=== PATIENT | male | born 1955 | race Caucasian/White ===

== ENCOUNTER 2024-05-28 18:06 | Emergency (ER) | payer MEDICARE, BC ==
[~2024-05-28] VITALS: Ht 185.4 cm; Wt 107.5 kg
[2024-05-28 18:36] LABS: BASOPHILS ABSOLUTE AUTO 0.05 K/mm3 (0.00-0.23); BASOPHILS PERCENT AUTO 1 % (0-2); EOSINOPHILS ABSOLUTE AUTO 0.15 K/mm3 (0.00-0.68); EOSINOPHILS PERCENT AUTO 2 % (0-6); Hematocrit 33.6 % (37.0-53.0); Hemoglobin 11.9 g/dL (13.5-17.5); IMMATURE GRAN ABSOLUTE AUTO 0.04 K/mm3 (0.00-0.10); IMMATURE GRAN PERCENT AUTO 1 % (0-1); LYMPHOCYTES ABSOLUTE AUTO 1.75 K/mm3 (0.84-5.20); LYMPHOCYTES PERCENT AUTO 23 % (21-46); MONOCYTES ABSOLUTE AUTO 0.81 K/mm3 (0.16-1.47); MONOCYTES PERCENT AUTO 11 % (4-13); Mean Corpuscular HGB 34.7 pg (26.0-34.0); Mean Corpuscular HGB Conc 35.4 g/dL (31.5-36.5); Mean Corpuscular Volume 98 fL (80-100); Mean Platelet Volume 8.5 fL (9.1-12.4); NEUTROPHILS PERCENT AUTO 64 % (41-73); Platelet Count 157 K/mm3 (150-400); RDW Coefficient Variation 12.8 % (11.7-14.2); RDW Standard Deviation 46.4 fL (35.1-46.3); Red Blood Cell Count 3.43 M/mm3 (4.30-5.90)
[2024-05-28 19:41] LABS: Albumin, Blood 3.6 g/dL (3.4-5.0); Albumin/Globulin Ratio 0.7 (0.8-1.8); Bilirubin, Total 0.5 mg/dL (0.1-1.0); Calcium, Blood 8.7 mg/dL (8.5-10.1); Creatinine, Blood 0.75 mg/dL (0.60-1.20); Globulin, Blood 5.1 g/dL (2.2-4.0); Potassium, Blood 4.5 mmol/L (3.5-5.5); Total Protein, Blood 8.7 g/dL (6.4-8.2)
[2024-05-28] MEDS ORDERED: LOSA50 PO (20:35)
[2024-05-28] MEDS ORDERED: BUSPIRONE HCL10 M6 PO (20:35)
[2024-05-28] MEDS ORDERED: LATA.005SO BOTHEYES (20:35)
[2024-05-28] MEDS ORDERED: TESTOSTERONE75 G1 TD (20:35)
[2024-05-28] MEDS ORDERED: OMEP20ER PO (20:36)
[2024-05-28] MEDS ORDERED: Tessalon200 MG PO (20:37)
[2024-05-28] MEDS ORDERED: AMITRIPTYLINE H25 MG PO (20:37)
[2024-05-28 21:15] VITALS: BP 161/87
== END 2024-05-28 21:31 | disposition home or self-care (01) ==
LOC: ER 18:06
PROVIDERS: Student in an Organized Health Care Education/Training Program
DX: R07.9 Chest pain, unspecified (principal); R55 Syncope and collapse; J32.9 Chronic sinusitis, unspecified; Z87.891 Personal history of nicotine dependence; D61.818 Other pancytopenia; D51.1 Vitamin B12 deficiency anemia due to selective vitamin B12 malabsorption with proteinuria; D52.0 Dietary folate deficiency anemia; E55.9 Vitamin D deficiency, unspecified; B18.8 Other chronic viral hepatitis; R94.6 Abnormal results of thyroid function studies
CPT/HCPCS: 36415; 70450; 71046; 80053; 80074; 82306; 82607; 82668; 82746; 82784; 82977; 83521; 83615; 83690; 84155; 84165; 84443; 84484; 85025; 85060; 86039; 86334; 86707; 87340; 87350; 88184; 88185; 93005; 93010; 99285-25

== ENCOUNTER 2024-07-26 13:34 | Emergency (ER) | payer MEDICARE, BC ==
[~2024-07-26] VITALS: Ht 185.4 cm; Wt 108.9 kg
[~2024-07-26 13:34] MED LIST: AMITRIPTYLINE H25 MG PO; BUSPIRONE HCL10 M6 PO; LATA.005SO BOTHEYES; LOSA50 PO; OMEP20ER PO; TESTOSTERONE75 G1 TD; Tessalon200 MG PO
[2024-07-26] MEDS ORDERED: HYDROCODONE-AC1 EA19 (16:33)
[2024-07-26] MEDS ORDERED: OMEP20ER (16:33)
[2024-07-26] MEDS ORDERED: Lidocaine 4% 1 Patch TOP ONE (16:40)
[2024-07-26] MEDS ORDERED: HYDROmorphone HCl/Pf 1MG SYR IM ONE (16:40)
[2024-07-26] MEDS ORDERED: Sennosides 8.6 MG Tab PO ONE (16:40)
[2024-07-26] MEDS ORDERED: Methocarbamol 500 MG Tab PO ONE (16:40)
[2024-07-26] MEDS ORDERED: RX Prepack 6 Tabs Oxycodone 5mg UD ONE (18:35)
[2024-07-26] MEDS ORDERED: Robaxin750 MG PO (18:37)
[2024-07-26] MEDS ORDERED: Roxicodone5 MG PO (18:37)
[2024-07-26 18:45] VITALS: BP 167/92
== END 2024-07-26 18:48 | disposition home or self-care (01) ==
LOC: ER 13:34
DX: S22.41XA Multiple fractures of ribs, right side, initial encounter for closed fracture (principal); J90 Pleural effusion, not elsewhere classified; J98.11 Atelectasis; V18.0XXA Pedal cycle driver injured in noncollision transport accident in nontraffic accident, initial encounter; Z79.899 Other long term (current) drug therapy; Z87.891 Personal history of nicotine dependence
CPT/HCPCS: 71046; 71250; 96372; 99285-25; A9270; J1171

== ENCOUNTER → 2024-11-27 | Outpatient (CLI) | payer MEDICARE, BC ==
[~2024-11-27] MED LIST changes: +HYDROCODONE-AC1 EA19; +OMEP20ER; +Robaxin750 MG PO; +Roxicodone5 MG PO
[2024-11-27 15:57] LABS: Albumin, Blood 3.9 g/dL (3.4-5.0); Anion Gap 9 mmol/L (3-11); Blood Urea Nitrogen 23 mg/dL (8-24); CO2, Blood 28 mmol/L (21-32); Calcium, Blood 8.8 mg/dL (8.5-10.1); Chloride, Blood 99 mmol/L (98-108); Creatinine, Blood 1.22 mg/dL (0.60-1.20); Glucose, Blood 112 mg/dL (70-99); Phosphorus, Blood 3.4 mg/dL (2.5-4.9); Potassium, Blood 4.6 mmol/L (3.5-5.5); Sodium, Blood 131 mmol/L (136-145)
== END ==
LOC: LAB SHORT 12:39 → LAB 12:39
PROVIDERS: Internal Medicine
DX: I10 Essential (primary) hypertension (principal)
CPT/HCPCS: 80069

== ENCOUNTER → 2025-02-10 | Outpatient (CLI) | payer MEDICARE, BC | LOC: LAB SHORT 14:32 → LAB 14:32 | DX: L30.8 Other specified dermatitis (principal) | CPT/HCPCS: 88305; 88312 ==